=== PATIENT | male | born 1940 ===

== ENCOUNTER → 2016-06-16 | Outpatient (CLI) | payer OTHER, MEDICARE ==
[~2016-06-16] MED LIST: ACET1TAB84 PO; AMLO-110 PO; AVD5 PO; CMBIN INH; CMD3 PO; CRD200 PO; EZET10TA41 PO; GLUCOSAMINE; MULT-506 PO; [UNRECOGNIZED DRUG - CODE] PO
[2016-06-16 18:15] LABS: HEMATOCRIT 40.9 % (42-52); MEAN CELL VOLUME 85.9 fL (80-100); MEAN PLATELET VOLUME 9.2 fL (7.4-10.4); PLATELET COUNT 272 K/uL (130-400); RED BLOOD COUNT 4.76 M/uL (4.7-6.1); WHITE BLOOD COUNT 7.32 K/uL (4.8-10.8)
[2016-06-16 18:24] LABS: BLOOD UREA NITROGEN 32 mg/dl (7-18); BUN/CREATININE RATIO 33.4 (10-20); CALCIUM 9.2 mg/dl (8.5-10.1); CARBON DIOXIDE 30 mmol/L (21-32); CHLORIDE 104 mmol/L (98-107); CREATININE 0.96 mg/dl (0.60-1.40); GLUCOSE 93 mg/dl (70-99); POTASSIUM 4.3 mmol/L (3.5-5.1); SODIUM 141 mmol/L (136-145)
[2016-06-16 18:27] LABS: ALB/GLOB RATIO 0.9 (0.9-2); ALKALINE PHOSPHATASE 63 U/L (45-117); ALT/SGPT 59 U/L (12-78); AST/SGOT 23 U/L (15-37)
== END | disposition home or self-care (01) ==
LOC: C.LABMFLN 14:44
PROVIDERS: ATTEND Internal Medicine Cardiovascular Disease
DX: E78.5 Hyperlipidemia, unspecified (principal); I25.10 Atherosclerotic heart disease of native coronary artery without angina pectoris; I48.0 Paroxysmal atrial fibrillation; I10 Essential (primary) hypertension; I35.1 Nonrheumatic aortic (valve) insufficiency; R09.89 Other specified symptoms and signs involving the circulatory and respiratory systems; I05.9 Rheumatic mitral valve disease, unspecified

== ENCOUNTER → 2016-11-06 | Outpatient (CLI) | payer OTHER, MEDICARE ==
[2016-11-06 19:25] LABS: BLOOD UREA NITROGEN 33 mg/dl (7-18)
== END | disposition home or self-care (01) ==
LOC: C.LABMFLN 16:04
PROVIDERS: ATTEND Urology
DX: C61 Malignant neoplasm of prostate (principal); I48.0 Paroxysmal atrial fibrillation